=== PATIENT | female | born 1975 | race Two or more races ===

== ENCOUNTER 2017-03-26 18:40 | Emergency (ER) | payer SELFPAY ==
[~2017-03-26] VITALS: Ht 162.6 cm; Wt 83.9 kg
[~2017-03-26 18:40] MED LIST: DOCU-109 PO; FERR160T4 PO; IBUP-1060 PO; OXYC-323 PO; OXYC1TAB7 PO
[2017-03-26 19:35] LABS: BASO % 0 % (0-3); EOS % 1 % (0-3); HEMOGLOBIN 16.1 g/dL (12.0-15.5); LYMPH # 1.6 x10^3/uL (1.0-4.8); LYMPH % 15 % (24-48); MEAN CORPUSCULAR HEMOGLOBIN 31 pg (25-35); MEAN CORPUSCULAR HGB CONC 35 g/dL (31-37); MEAN CORPUSCULAR VOLUME 90 fL (79-100); MONO % 6 % (0-9); NEUT % 78 % (31-73); PLATELET COUNT 237 x10^3/uL (140-400); RED BLOOD COUNT 5.13 x10^6/uL (3.50-5.40); RED CELL DISTRIBUTION WIDTH 13.1 % (11.5-14.5)
[2017-03-26 19:37] LABS: BILIRUBIN,URINE NEGATIVE (NEG); GLUCOSE,URINE NEGATIVE (NEG); NITRITE,URINE NEGATIVE (NEG); PH,URINE 8.5; PROTEIN,URINE 30 mg/dL (NEG-TRACE); UROBILINOGEN,URINE 0.2 mg/dL (0.2 mg/dL)
[2017-03-26 19:47] LABS: BACTERIA,URINE 0 /HPF (0-FEW); SQUAMOUS EPITHELIAL CELL,UR MANY /LPF; WBC,URINE 0 /HPF (0-4)
[2017-03-26 19:48] LABS: CALCIUM 9.3 mg/dL (8.5-10.1); GFR 61.1; POTASSIUM 3.1 mmol/L (3.5-5.1)
[2017-03-26 19:55] LABS: ALBUMIN 4.1 g/dL (3.4-5.0); TOTAL BILIRUBIN 0.5 mg/dL (0.2-1.0); TOTAL PROTEIN 8.2 g/dL (6.4-8.2)
[2017-03-26] MEDS ORDERED: KETOROLAC 15 MG/ML VIAL. IV ONE (20:45)
[2017-03-26] MEDS ORDERED: IOHEXOL 300 MG/ML 75 ML VIAL IV ONE (20:45)
[2017-03-26] MEDS ORDERED: ONDANSETRON PF 4 MG/2 ML VIAL. IV ONE (20:45)
[2017-03-26] MEDS ORDERED: fentaNYL PF VIAL 100 MCG/2 ML VIAL IV ONE (20:45)
--- NOTE | 2017-03-26 21:35 | PHYS DOC ---
Past Medical History Past Medical History: Uterine Fibroids Past Surgical History: Hysterectomy Alcohol Use: None Drug Use: None Adult General Chief Complaint Chief Complaint: ABDOMINAL PAIN HPI HPI Patient is a 42 year old male who presents with acute onset left sided flank pain during earlier this afternoon. Pain is described as moderate to severe and cramping. It radiates to left pelvis and left lower lateral leg. Patient denies trauma or repetitive strain injury. Patient denies urinary frequency urgency . And hematuria. No history of kidney stones. Patient has history of uterine fibroids with previous hysterectomy with left oophorectomy. No other abdominal surgeries. Patient denies fever, nausea, vomiting, and vaginal bleeding. No other acute symptoms or complaints. [] Review of Systems Review of Systems ROS as per HPI. Current Medications Current Medications Current Medications Medications (Trade) Dose Ordered Sig/Glory Start Time Stop Time Status Last Admin Dose Admin Fentanyl Citrate (Fentanyl 2ml Vial) 50 mcg 1X ONCE 03/26/17 20:45 03/26/17 20:46 DC 03/26/17 20:51 50 MCG Iohexol (Omnipaque 300 Mg/ml) 75 ml 1X ONCE 03/26/17 20:45 03/26/17 20:46 DC 03/26/17 21:08 75 ML Ketorolac Tromethamine (Toradol) 15 mg 1X ONCE 03/26/17 20:45 03/26/17 20:46 DC 03/26/17 20:49 15 MG Morphine Sulfate 5 mg 1X ONCE 03/27/17 00:30 03/27/17 00:31 UNV Ondansetron HCl (Zofran) 4 mg 1X ONCE 03/26/17 20:45 03/26/17 20:46 DC 03/26/17 20:49 4 MG Allergies Allergies Allergies Coded Allergies Type Severity Reaction Last Updated Verified No Known Drug Allergies 04/16/16 No Physical Exam Physical Exam Constitutional: Well developed, well nourished, moderate discomfort. [] HENT: Normocephalic, atraumatic, bilateral external ears normal, oropharynx moist, no oral exudates, nose normal. [] Eyes: PERRLA, EOMI, conjunctiva normal, no discharge. [] Neck: Normal range of motion, no tenderness, supple, no stridor. [] Cardiovascular:Heart rate regular rhythm. [] Lungs & Thorax: Bilateral breath sounds clear to auscultation. [] Abdomen: Bowel sounds normal, soft, no tenderness. [] Skin: Warm, dry, no erythema. [] Back: No midline tenderness, left lower thoracic pain, no tenderness. [] Extremities: No tenderness. [] Neurologic: Alert and oriented X 3, normal motor function, normal sensory function, no focal deficits noted. [] Psychologic: Affect normal, judgement normal, mood normal. [] Current Patient Data Vital Signs Vital Signs Date Time Temp Pulse Resp B/P (MAP) Pulse Ox O2 Delivery O2 Flow Rate FiO2 03/26/17 23:42 65 22 103/59 (74) 98 Room Air 03/26/17 18:47 99.2 99.2 Lab Values Laboratory Tests Test 03/26/17 18:50 03/26/17 18:51 03/26/17 19:00 Urine Collection Type Unknown Urine Color Yellow Urine Clarity Clear Urine pH 8.5 Urine Specific [place] 1.025 Urine Protein 30 mg/dL (NEG-TRACE) Urine Glucose (UA) Negative mg/dL (NEG) Urine Ketones (Stick) 40 mg/dL (NEG) Urine Blood Negative (NEG) Urine Nitrite Negative (NEG) Urine Bilirubin Negative (NEG) Urine Urobilinogen Dipstick 0.2 mg/dL (0.2 mg/dL) Urine Leukocyte Esterase Negative (NEG) Urine RBC 1-2 /HPF (0-2) Urine WBC 0 /HPF (0-4) Urine Squamous Epithelial Cells Many /LPF Urine Amorphous Sediment Present /HPF Urine Bacteria 0 /HPF (0-FEW) Urine Mucus Slight /LPF POC Urine HCG, Qualitative Hcg negative (Negative) White Blood Count 11.0 x10^3/uL (4.0-11.0) Red Blood Count 5.13 x10^6/uL (3.50-5.40) Hemoglobin 16.1 g/dL (12.0-15.5) H Hematocrit 46.0 % (36.0-47.0) Mean Corpuscular Volume 90 fL (79-100) Mean Corpuscular Hemoglobin 31 pg (25-35) Mean Corpuscular Hemoglobin Concent 35 g/dL (31-37) Red Cell Distribution Width 13.1 % (11.5-14.5) Platelet Count 237 x10^3/uL (140-400) Neutrophils (%) (Auto) 78 % (31-73) H Lymphocytes (%) (Auto) 15 % (24-48) L Monocytes (%) (Auto) 6 % (0-9) Eosinophils (%) (Auto) 1 % (0-3) Basophils (%) (Auto) 0 % (0-3) Neutrophils # (Auto) 8.5 x10^3uL (1.8-7.7) H Lymphocytes # (Auto) 1.6 x10^3/uL (1.0-4.8) Monocytes # (Auto) 0.7 x10^3/uL (0.0-1.1) Eosinophils # (Auto) 0.1 x10^3/uL (0.0-0.7) Basophils # (Auto) 0.0 x10^3/uL (0.0-0.2) Sodium Level 140 mmol/L (136-145) Potassium Level 3.1 mmol/L (3.5-5.1) L Chloride Level 100 mmol/L (98-107) Carbon Dioxide Level 26 mmol/L (21-32) Anion Gap 14 (6-14) Blood Urea Nitrogen 13 mg/dL (7-20) Creatinine 1.0 mg/dL (0.6-1.0) Estimated GFR (Cockcroft-Gault) 61.1 BUN/Creatinine Ratio 13 (6-20) Glucose Level 110 mg/dL (70-99) H Calcium Level 9.3 mg/dL (8.5-10.1) Total Bilirubin 0.5 mg/dL (0.2-1.0) Aspartate Amino Transferase (AST) 24 U/L (15-37) Alanine Aminotransferase (ALT) 24 U/L (14-59) Alkaline Phosphatase 49 U/L (46-116) Total Protein 8.2 g/dL (6.4-8.2) Albumin 4.1 g/dL (3.4-5.0) Albumin/Globulin Ratio 1.0 (1.0-1.7) Laboratory Tests 03/26/17 19:00 Laboratory Tests 03/26/17 19:00 EKG EKG [] Radiology/Procedures Radiology/Procedures C[T abdomen pelvis: Severe hydro-ureteral obstruction with distal 1-2 mm ureteral stone per radiology report.] Course & Med Decision Making Course & Med Decision Making Pertinent Labs and Imaging studies reviewed. (See chart for details) [Patient with ureteral obstruction. Repeat pain medication given here. There is no urology service available at this facility. Patient accepted to [facility] the [place] per Dr. Charo Nunez.] [place] Disclaimer Dragon Disclaimer This electronic medical record was generated, in whole or in part, using a voice recognition dictation system. Departure Departure Impression: Primary Impression: Left flank pain Additional Impression: Acute unilateral obstructive uropathy Disposition: 02 [facility] Condition: STABLE Referrals: GABBY LAND MD (PCP) Problem Qualifiers NAGI TIWARI DO Mar 26, 2017 21:35
--- NOTE | 2017-03-26 21:54 | RAD ---
CT Abdomen and Pelvis With Intravenous Contrast: History: Left lower quadrant pain radiating to the flank. Comparison: None. Technique: After administration of intravenous contrast administration, 75 mL Omnipaque-300, CT of the abdomen and pelvis was performed. Exposure: One or more of the following individualized dose reduction techniques were utilized for this examination: 1. Automated exposure control 2. Adjustment of the mA and/or kV according to patient size 3. Use of iterative reconstruction technique Findings: Evaluation of enteric structures may be limited by lack of oral contrast. Liver demonstrates presence of several low-density lesions, not adequately characterized on this examination. Spleen, pancreas, gallbladder, and bilateral adrenal glands unremarkable. No bowel obstruction or inflammation is identified. Appendix is without evidence of inflammation. Colonic diverticulosis is noted, but no diverticulitis appreciated. Uterus is absent. There is a small cystic lesion involving the right hemipelvis, probably ovarian follicle. There is severe left hydroureteronephrosis which is seen to the level of distal left ureter. There is obstructive uropathy with delayed phase of enhancement of the left kidney relative to the contralateral side. Large amount of left perinephric inflammatory change is identified. There is a slight density at the level of the distal left ureter, may represent 1-2 mm stone. Impression: 1. Severe left hydroureteronephrosis. Left perinephric inflammatory change. This may be due to 1-2 mm stone, although suspected stone is suboptimally visualized secondary to suspected volume averaging. Electronically signed by: Ryan Britt MD (03/26/2017 9:50 PM) [facility]
[2017-03-26 23:42] VITALS: BP 103/59
[2017-03-27] MEDS ORDERED: MORPHINE SULFATE 10 MG/ML VIAL. IV ONE (00:30)
== END 2017-03-27 01:09 | disposition short-term general hospital (02) ==
LOC: ER 18:40
DX: N13.9 Obstructive and reflux uropathy, unspecified (principal); D25.9 Leiomyoma of uterus, unspecified; Z90.710 Acquired absence of both cervix and uterus
CPT/HCPCS: 36415; 74177; 80053; 81001; 81025; 85025; 96374; 96375; 99285; J1885; J2270; J2405; J3010; Q9967

== ENCOUNTER → 2017-08-05 | Outpatient (CLI) | payer OTHER ==
[2017-08-05] MEDS: IOHEXOL 300 MG/ML 100ML VIAL. IV (10:31)
== END | disposition home or self-care (01) ==
LOC: RAD 09:53
DX: N20.0 Calculus of kidney (principal); N13.5 Crossing vessel and stricture of ureter without hydronephrosis
CPT/HCPCS: 74400; Q9967

== ENCOUNTER 2020-10-25 17:49 | Emergency (ER) | payer SELFPAY ==
[~2020-10-25] VITALS: Ht 160 cm; Wt 88.0 kg
[~2020-10-25 17:49] MED LIST changes: -OXYC-323 PO; +OXYC1TAB15 PO
[2020-10-25 19:11] LABS: BASO % 1 % (0-3); EOS # 0.2 x10^3/uL (0.0-0.7); EOS % 4 % (0-3); HEMATOCRIT 41.2 % (36.0-47.0); HEMOGLOBIN 14.4 g/dL (12.0-15.5); LYMPH # 1.5 x10^3/uL (1.0-4.8); LYMPH % 27 % (24-48); MEAN CORPUSCULAR HEMOGLOBIN 31 pg (25-35); MEAN CORPUSCULAR HGB CONC 35 g/dL (31-37); MEAN CORPUSCULAR VOLUME 90 fL (79-100); MONO # 0.5 x10^3/uL (0.0-1.1); MONO % 9 % (0-9); NEUT # 3.3 x10^3/uL (1.8-7.7); NEUT % 59 % (31-73); PLATELET COUNT 171 x10^3/uL (140-400); RED CELL DISTRIBUTION WIDTH 13.4 % (11.5-14.5); WHITE BLOOD COUNT 5.6 x10^3/uL (4.0-11.0)
[2020-10-25 19:24] LABS: CALCIUM 8.5 mg/dL (8.5-10.1); CREATININE 0.9 mg/dL (0.6-1.0); POTASSIUM 3.6 mmol/L (3.5-5.1)
[2020-10-25 19:30] LABS: ALBUMIN 3.9 g/dL (3.4-5.0); ALBUMIN/GLOBULIN RATIO 1.3 (1.0-1.7); MAGNESIUM 1.7 mg/dL (1.8-2.4); TOTAL BILIRUBIN 0.8 mg/dL (0.2-1.0); TOTAL PROTEIN 6.8 g/dL (6.4-8.2)
[2020-10-25 19:53] LABS: BILIRUBIN,URINE NEGATIVE (NEG); CLARITY,URINE CLEAR; COLOR,URINE YELLOW; NITRITE,URINE POSITIVE (NEG); PROTEIN,URINE NEGATIVE (NEG-TRACE); UROBILINOGEN,URINE 0.2 mg/dL (0.2 mg/dL)
[2020-10-25] MEDS ORDERED: LIDO:MAALOX 1:1 20 ML SINGLE DOSE. SWSW ONE (20:15)
[2020-10-25 20:16] LABS: BACTERIA,URINE MANY /HPF (0-FEW)
[2020-10-25 20:18] LABS: RBC,URINE OCC /HPF (0-2)
--- NOTE | 2020-10-25 20:34 | EKG ---
[facility] [address] [place] [address] Test Date: 2020-10-25 Test Time: 19:39:42 Pat Name: WILLIAM GORDILLO Department: Room: Gender: F Car Sander: : 1975 Requested By: TRACI GRADY Order Number: [id number] Reading MD: Measurements Intervals [place] Rate: 70 P: 49 FL: 180 QRS: 40 QRSD: 72 T: 8 QT: 362 QTc: 393 Interpretive Statements SINUS RHYTHM NORMAL ECG RI6.01 No previous ECG available for comparison
[2020-10-25] MEDS ORDERED: IV NORMAL SALINE 1000ML BAG 1,000 ML IV ONE (21:30)
[2020-10-25] MEDS ORDERED: cefTRIAXone IV Push 1 GM VIAL. IVP ONE (21:30)
[2020-10-25] MEDS ORDERED: KETOROLAC 15 MG/ML VIAL. IVP ONE (21:30)
--- NOTE | 2020-10-25 21:44 | RAD ---
Exam: CT of abdomen and pelvis without contrast INDICATION: Right flank pain TECHNIQUE: Sequential axial images through the abdomen and pelvis obtained without IV contrast. Sagit denise and coronal reformatted images were reconstructed from the axial data and reviewed. Exposure: One or more of the following in the visualized dose reduction techniques were utilized for this examination: 1. Automated exposure control 2. Adjustment of the MA and/or KV according to patient size 3. Use of iterative of reconstructive technique Comparisons: 03/26/2017 FINDINGS: Heart size is normal. No pericardial effusion. Visualized lung bases are clear. No pleural effusion. Diffuse hepatic steatosis. Spleen, pancreas, gallbladder and adrenals are unremarkable. No perinephric inflammation or hydronephrosis. No renal calculi. 2 mm calcification at the expected a staci of the distal right ureter. Bladder is partially distended and not well evaluated. Uterus is absent. No abnormal adnexal mass. Large and small bowel are unremarkable. Appendix is normal. No free intra-abdominal air or fluid. No obstruction. Abdominal aorta has a normal course and caliber. No enlarged intra-abdominal lymph nodes are identified. No suspicious osseous lesions or acute fractures. IMPRESSION: 1. Suspect 2 mm calculus the distal right ureter. No hydronephrosis. 2. Diffuse hepatic steatosis. Electronically signed by: Tee Willis MD (10/25/2020 9:42 PM) [facility]
[2020-10-25 22:08] VITALS: BP 119/67
[2020-10-25] MEDS ORDERED: ONDA4TAB12 PO (22:26)
[2020-10-25] MEDS ORDERED: LEVO750T5 PO (22:26)
[2020-10-25] MEDS ORDERED: TAMS0.4C97 PO (22:26)
[2020-10-25] MEDS ORDERED: HYDR-2761 PO (22:26)
--- NOTE | 2020-10-25 22:27 | ED.ADGEN ---
Past Medical History Past Medical History: Uterine Fibroids Past Surgical History: Hysterectomy, Other Additional Past Surgical Histo: "MY KIDNEY WAS BLOCKED SO I HAD A SURGERY." Smoking Status: Never Smoker Alcohol Use: None Drug Use: None General Adult EDM: Chief Complaint: ABDOMINAL PAIN HPI: HPI: Patient is a 45 year old female who presents emergency department with co mplaints of epigastric and right flank pain that has gradually increased over the last 2 weeks. She denies any dysuria, hematuria, increased urinary frequency, or difficulty voiding. Patient denies any vomiting, or diarrhea. She states her last bowel movement was today and was normal. Patient does report nausea at this time. She denies any fever, palpitations, chest pain, dizziness, headache, cough, or shortness of breath. She currently rates her pain a 10 out of 10 on the pain scale, she denies any alleviating factors. Review of Systems: Review of Systems: Complete ROS is negative unless otherwise noted in HPI. Current Medications: Current Medications Medications (Trade) Dose Ordered Sig/Glory Start Time Stop Time Status Last Admin Dose Admin Ceftriaxone Sodium (Rocephin) 1 gm 1X ONCE 10/25/20 21:30 10/25/20 21:31 DC 10/25/20 21:52 1 GM Ketorolac Tromethamine (Toradol 15mg Vial) 15 mg 1X ONCE 10/25/20 21:30 10/25/20 21:31 DC 10/25/20 21:52 15 MG Multi-Ingredient Mouthwash/Gargle (Gi Cocktail) 20 ml 1X ONCE 10/25/20 20:15 10/25/20 20:16 DC 10/25/20 19:49 20 ML Prochlorperazine Edisylate (Compazine) 10 mg 1X ONCE 10/25/20 22:30 10/25/20 22:31 DC 10/25/20 22:33 10 MG Sodium Chloride 1,000 ml @ 1,000 mls/hr 1X ONCE 10/25/20 21:30 10/25/20 22:29 DC 10/25/20 21:50 1,000 MLS/HR Allergies: Allergies: Allergies Coded Allergies Type Severity Reaction Last Updated Verified No Known Drug Allergies 04/16/16 No Physical Exam: PE: See Above Constitutional: Well developed, well nourished, no acute distress, non-toxic appearance, appears uncomfortable. [] HENT: Normocephalic, atraumatic, bilateral external ears normal, nose normal. [] Eyes: PERRLA, EOMI, conjunctiva normal, no discharge. [] Neck: Normal range of motion, no stridor. [] Cardiovascular:Heart rate regular rhythm Lungs & Thorax: Respirations even and unlabored, no retractions, no respiratory distress Abdomen: soft, epigastric tenderness to palpation, no rebound tenderness, no gua rding, no palpable masses, abdomen is otherwise soft and nontender. Back: Nontender, no CVA tenderness Skin: Warm, dry, no erythema, no rash. [] Extremities: No cyanosis, ROM intact, no edema. [] Neurologic: Alert and oriented X 3, normal motor, normal sensory, no focal deficits noted. [] Psychologic: Affect normal, judgement normal, mood normal. [] Current Patient Data: Labs: Laboratory Tests Test 10/25/20 18:58 10/25/20 19:09 10/25/20 19:45 White Blood Count 5.6 x10^3/uL (4.0-11.0) Red Blood Count 4.60 x10^6/uL (3.50-5.40) Hemoglobin 14.4 g/dL (12.0-15.5) Hematocrit 41.2 % (36.0-47.0) Mean Corpuscular Volume 90 fL (79-100) Mean Corpuscular Hemoglobin 31 pg (25-35) Mean Corpuscular Hemoglobin Concent 35 g/dL (31-37) Red Cell Distribution Width 13.4 % (11.5-14.5) Platelet Count 171 x10^3/uL (140-400) Neutrophils (%) (Auto) 59 % (31-73) Lymphocytes (%) (Auto) 27 % (24-48) Monocytes (%) (Auto) 9 % (0-9) Eosinophils (%) (Auto) 4 % (0-3) H Basophils (%) (Auto) 1 % (0-3) Neutrophils # (Auto) 3.3 x10^3/uL (1.8-7.7) Lymphocytes # (Auto) 1.5 x10^3/uL (1.0-4.8) Monocytes # (Auto) 0.5 x10^3/uL (0.0-1.1) Eosinophils # (Auto) 0.2 x10^3/uL (0.0-0.7) Basophils # (Auto) 0.0 x10^3/uL (0.0-0.2) Sodium Level 140 mmol/L (136-145) Potassium Level 3.6 mmol/L (3.5-5.1) Chloride Level 105 mmol/L (98-107) Carbon Dioxide Level 29 mmol/L (21-32) Anion Gap 6 (6-14) Blood Urea Nitrogen 6 mg/dL (7-20) L Creatinine 0.9 mg/dL (0.6-1.0) Estimated GFR (Cockcroft-Gault) 68.0 BUN/Creatinine Ratio 7 (6-20) Glucose Level 92 mg/dL (70-99) Calcium Level 8.5 mg/dL (8.5-10.1) Magnesium Level 1.7 mg/dL (1.8-2.4) L Total Bilirubin 0.8 mg/dL (0.2-1.0) Aspartate Amino Transferase (AST) 19 U/L (15-37) Alanine Aminotransferase (ALT) 39 U/L (14-59) Alkaline Phosphatase 42 U/L (46-116) L Troponin I Quantitative < 0.017 ng/mL (0.000-0.055) Total Protein 6.8 g/dL (6.4-8.2) Albumin 3.9 g/dL (3.4-5.0) Albumin/Globulin Ratio 1.3 (1.0-1.7) Lipase 100 U/L (73-393) Urine Collection Type Unknown Urine Color Yellow Urine Clarity Clear Urine pH 6.0 (<5.0-8.0) Urine Specific [place] <=1.005 (1.000-1.030) Urine Protein Negative mg/dL (NEG-TRACE) Urine Glucose (UA) Negative mg/dL (NEG) Urine Ketones (Stick) Negative mg/dL (NEG) Urine Blood Negative (NEG) Urine Nitrite Positive (NEG) Urine Bilirubin Negative (NEG) Urine Urobilinogen Dipstick 0.2 mg/dL (0.2 mg/dL) Urine Leukocyte Esterase Moderate (NEG) Urine RBC Occ /HPF (0-2) Urine WBC 11-20 /HPF (0-4) Urine Squamous Epithelial Cells Mod /LPF Urine Bacteria Many /HPF (0-FEW) POC Urine HCG, Qualitative Hcg negative (Negative) Laboratory Tests 10/25/20 18:58 Laboratory Tests 10/25/20 18:58 Microbiology 10/25/20 Urine Culture - Preliminary, Resulted Vital Signs: Vital Signs Date Time Temp Pulse Resp B/P (MAP) Pulse Ox O2 Delivery O2 Flow Rate FiO2 10/25/20 22:08 74 119/67 (84) 99 Room Air 10/25/20 18:32 98.1 12 98.1 EKG: EK-sinus rhythm, rate 70, normal EKG, no STEMI, read by Dr. Chiang[] Heart Score: C/O Chest Pain: No Risk Scores: Score 0 - 3: 2.5% MACE over next 6 weeks - Discharge Home Score 4 - 6: 20.3% MACE over next 6 weeks - Admit for Clinical Observation Score 7 - 10: 72.7% MACE over next 6 weeks - Early Invasive Strategies Radiology/Procedures: Radiology/Procedures: PROCEDURE: CT ABDOMEN PELVIS WO CONTRAST Exam: CT of abdomen and pelvis without contrast INDICATION: Right flank pain TECHNIQUE: Sequential axial images through the abdomen and pelvis obtained without IV contrast. Sagittal and coronal reformatted images were reconstructed from the axial data and reviewed. Exposure: One or more of the following in the visualized dose reduction techniques were utilized for this examination: 1. Automated exposure control 2. Adjustment of the MA and/or KV according to patient size 3. Use of iterative of reconstructive technique Comparisons: 03/26/2017 FINDINGS: Heart size is normal. No pericardial effusion. Visualized lung bases are clear. No pleural effusion. Diffuse hepatic steatosis. Spleen, pancreas, gallbladder and adrenals are unremarkable. No perinephric inflammation or hydronephrosis. No renal calculi. 2 mm calcification at the expected area of the distal right ureter. Bladder is partially distended and not well evaluated. Uterus is absent. No abnormal adnexal mass. Large and small bowel are unremarkable. Appendix is normal. No free intra- abdominal air or fluid. No obstruction. Abdominal aorta has a normal course and caliber. No enlarged intra-abdominal lymph nodes are identified. No suspicious osseous lesions or acute fractures. IMPRESSION: 1. Suspect 2 mm calculus the distal right ureter. No hydronephrosis. 2. Diffuse hepatic steatosis. [] Course & Med Decision Making: Course & Med Decision Making Pertinent Labs and Imaging studies reviewed. (See chart for details) 45-year-old female presents emergency department for evaluation of epigastric. CBC is unremarkable; CMP reveals magnesium 1.7 otherwise unremarkable; patient's troponin is not elevated is less than 0.017; UA reveals white blood cells with occasional red blood cells, nitrates present, and many bacteria. CT the patient's abdomen and pelvis reveals a 2 mm stone in the distal right ureter, there is no hydronephrosis and diffuse ptosis. Patient reported that her pain was improved after 50 mg of IV Toradol. Patient was also given a liter normal saline, 1 g of Rocephin, and 10 mg of Compazine. Initially the patient was treated with a GI cocktail, she reported no relief from the GI cocktail. Vital signs are stable in the emergency department. Patient was provided with a urine collection hat, urine strainer, and sterile cup for stone collection. Prescriptions written for Flomax, hydrocodone, and Levaquin. Encouraged to increase clear fluids, avoid bladder irritants. Follow-up with urology at [facility] [phone] next week, call for an appointment. Return to the ER if you develop worsening pain, a fever, or are unable to keep your medications and fluids down. []Did no personally evaluate the patient. Treatment and care plan was independently made by MLP. I was available for consult. Barbra Disclaimer: Barbra Disclaimer: This electronic medical record was generated, in whole or in part, using a voice recognition dictation system. Departure Departure Impression: Primary Impression: Right kidney stone Additional Impression: UTI (urinary tract infection) Disposition: HOME / SELF CARE / HOMELESS Condition: STABLE Referrals: NO PCP (PCP) Patient Instructions: Diet for Kidney Stones, Kidney Stones, [id number], Urinary Tract Infection, [id number] Additional Instructions: Use the strainer and a urine collection hat to strain all of your urine. In crease clear fluids, avoid bladder irritants such as caffeine, carbonation, and spicy foods. Follow-up with urology at [facility] next week, call [phone] on Wednesday morning to schedule an appointment. Return to the ER if you develop worsening pain, a fever, or are unable to keep your medications and fluids down. [] Scripts Ondansetron (ONDANSETRON ODT) 4 Mg Tab.rapdis 1 TAB PO PRN Q6-8HRS PRN for NAUSEA/VOMITING for 4 Days, #16 TAB 0 Refills Prov: TRACI GRADY NEUROLOGY PHYSICIAN 10/25/20 Levofloxacin (LEVOFLOXACIN) 750 Mg Tablet 1 TAB PO DAILY, #7 TAB 0 Refills Prov: TRACI GRADY NEUROLOGY PHYSICIAN 10/25/20 Hydrocodone Bit/Acetaminophen (HYDROCODONE-APAP 5-325 ) 1 Tab Tablet 1 TAB PO PRN Q6HRS PRN for PAIN for 5 Days, #20 TAB 0 Refills Prov: TRACI GRADY NEUROLOGY PHYSICIAN 10/25/20 Tamsulosin Hcl (FLOMAX) 0.4 Mg Cap.er.24h 1 CAP PO DAILY for 14 Days, #14 CAP 0 Refills Prov: TRACI GRADY NEUROLOGY PHYSICIAN 10/25/20 Problem Qualifiers Additional Impression: UTI (urinary tract infection) Urinary tract infection type: acute cystitis Hematuria presence: with hematuria Qualified Codes: N30.01 - Acute cystitis with hematuria TRACI GRADY APRN October 25, 2020 22:27 LETITIA CHIANG DO October 27, 2020 18:15
[2020-10-25] MEDS ORDERED: PROCHLORPERAZINE 10 MG/2 ML VIAL. IV ONE (22:30)
== END 2020-10-25 22:45 | disposition home or self-care (01) ==
LOC: ER 17:49
DX: N20.0 Calculus of kidney (principal); N30.01 Acute cystitis with hematuria
CPT/HCPCS: 36415; 74176; 80053; 81001; 81025; 83690; 83735; 84484; 85025; 87086; 93005; 96361; 96374; 96375; 99285; J0696; J0780; J1885; J7030; 87077; 87186